=== PATIENT | male | born 1965 | race Caucasian/White ===

== ENCOUNTER 2018-08-06 23:59 | Inpatient (IN) | payer OTHER ==
[2018-08-07 01:10] LABS: ADD MAN DIFF? NO
[2018-08-07 01:13] LABS: WHITE BLOOD COUNT 11.9 10^3/ul (4.8-10.8)
[2018-08-07 01:13] LABS: BASOPHIL # 0.1 10^3/ul (0.0-0.1); BASOPHILS % 0.8 % (0.0-2.0); EOSINOPHILS # 0.3 10^3/ul (0.0-0.5); EOSINOPHILS % 2.7 % (0.0-7.0); HEMATOCRIT 54.9 % (42.0-52.0); HEMOGLOBIN 17.4 g/dl (14.0-18.0); LYMPHOCYTES # 1.3 10^3/ul (0.8-2.9); LYMPHOCYTES % 10.9 % (15.0-51.0); MEAN CORPUSCULAR HGB CONC 31.7 g/dl (32.0-37.0); MEAN CORPUSCULAR VOLUME 91.5 fl (82.0-101.0); MONOCYTE # 0.9 10^3/ul (0.3-0.9); MONOCYTES % 7.6 % (0.0-11.0); NEUTROPHIL # 9.2 10^3/ul (1.6-7.5); NEUTROPHILS % 77.5 % (39.0-77.0); PLATELET COUNT 235 10^3/UL (140-415); RED CELL DISTRIBUTION WIDTH 15.8 % (11.5-14.5)
[2018-08-07] MEDS: CLINDAMYCIN 900 MG/D5W (PMX) 50 ML IVPB (01:19)
[2018-08-07 01:33] LABS: INR 0.98; PARTIAL THROMBOPLASTIN TIME 29.2 Sec (23.0-35.0); PROTIME 13.1 Sec (11.9-14.9)
[2018-08-07 01:44] LABS: ANION GAP 4 (5-13); BLOOD UREA NITROGEN 17 mg/dl (7-20); CALCIUM 7.9 mg/dl (8.4-10.2); CARBON DIOXIDE 28 mmol/L (21-31); CHLORIDE 109 mmol/L (97-110); CREATININE 1.35 mg/dl (0.61-1.24); Estimated GFR 55 mL/min (>60); GLUCOSE 95 mg/dl (70-220); POTASSIUM 4.5 mmol/L (3.5-5.1); SODIUM 141 mmol/L (135-144)
[2018-08-07 01:56] LABS: TROPONIN-I 0.027 ng/ml (0.000-0.120)
[2018-08-07] MEDS ORDERED: NACL 0.9% 3 ML SYG IV (02:00)
[2018-08-07] MEDS ORDERED: ONDANSETRON 4 MG INJ IV (02:00)
[2018-08-07] MEDS ORDERED: VANCOMYCIN IV PER PHARMACY XX (02:00)
[2018-08-07] MEDS ORDERED: BISACODYL (EC) 5 MG TAB PO (02:00)
[2018-08-07] MEDS ORDERED: ACETAMINOPHEN 325 MG TAB PO (02:00)
[2018-08-07] MEDS ORDERED: DOCUSATE SODIUM 100 MG CAP PO (02:00)
[2018-08-07] MEDS: FUROSEMIDE 40 MG INJ IV ×2 (02:19→10:47)
[2018-08-07] MEDS: PIPER-TAZO 3.375 GM IV (PMX) 100 ML IVPB (02:20)
[2018-08-07] MEDS: hydrALAzine 20 MG INJ IV (02:20)
[2018-08-07 02:59] LABS: ALANINE AMINOTRANSFERASE 39 IU/L (13-69); ALBUMIN 2.6 g/dl (3.3-4.9); ALKALINE PHOSPHATASE 205 IU/L (42-121); ASPARTATE AMINO TRANSFERASE 64 IU/L (15-46); BILIRUBIN,INDIRECT 1.1 mg/dl (0-1.1); BILIRUBIN,TOTAL 1.1 mg/dl (0.2-1.3); CHOL/HDL RATIO 5.1 RATIO; CHOLESTEROL 179 mg/dl (100-200); HDL CHOLESTEROL 35 mg/dl (28-71); LDL CHOLESTEROL,CALCULATED 124 mg/dl; TOTAL PROTEIN 5.4 g/dl (6.1-8.1); TRIGLYCERIDES 99 mg/dl (0-149)
[2018-08-07 03:08] LABS: B-TYPE NATRIURETIC PEPTIDE 7960 PG/ML (0-125)
[2018-08-07] MEDS: VANCOMYCIN 1 GM (PMX) 250 ML IVPB (03:18)
[2018-08-07 03:27] LABS: ADD UMIC NO; UR ASCORBIC ACID 40 mg/dL (NEGATIVE); UR BILIRUBIN (Dip) NEGATIVE (NEGATIVE); UR BLOOD (Dip) NEGATIVE (NEGATIVE); UR CLARITY CLEAR (CLEAR); UR COLOR YELLOW (YELLOW); UR GLUCOSE (Dip) NEGATIVE (NEGATIVE); UR KETONES (Dip) NEGATIVE (NEGATIVE); UR LEUKOCYTE ESTERASE (Dip) NEGATIVE Leu/ul (NEGATIVE); UR NITRITE (Dip) NEGATIVE (NEGATIVE); UR SPECIFIC GRAVITY (Dip) 1.014 (1.003-1.030); UR TOTAL PROTEIN (Dip) NEGATIVE (NEGATIVE); UR UROBILINOGEN (Dip) 2+ mg/dL (NEGATIVE)
[2018-08-07] MEDS: morphine 2 MG INJ IV (04:44)
[2018-08-07 05:15] LABS: ETHANOL < 10.0 mg/dl
[2018-08-07] MEDS ORDERED: HEPARIN 5,000 UNIT/0.5 ML VIAL ×2 (05:20→22:00)
[2018-08-07 05:23] LABS: BARBITURATES Negative (NEGATIVE); BENZODIAZEPINES Negative (NEGATIVE); CANNABINOIDS Negative (NEGATIVE); COCAINE Negative (NEGATIVE); OPIATES Negative (NEGATIVE)
[2018-08-07 05:32] LABS: HEMOGLOBIN A1C 5.6 % (0-5.9)
[2018-08-07] MEDS: HEPARIN 5,000 UNIT/1 ML VIAL SC ×3 (05:47→22:02)
[2018-08-07 06:05] LABS: AMPHETAMINE/METHAMPHETAMINE POSITIVE (NEGATIVE)
[2018-08-07] MEDS: VANCOMYCIN 1 GM 250 ML IVPB ×2 (06:23→22:01)
[2018-08-07 06:29] LABS: LACTIC ACID 1.5 mmol/L (0.5-2.0)
[2018-08-07 07:59] LABS: LACTIC ACID 1.6 mmol/L (0.5-2.0)
[2018-08-07] MEDS ORDERED: VANCOMYCIN 1 GM 250 ML IVPB (18:30)
[2018-08-08] MEDS ORDERED: HEPARIN 5,000 UNIT/0.5 ML VIAL ×3 (05:31→22:16)
[2018-08-08] MEDS: HEPARIN 5,000 UNIT/1 ML VIAL SC ×3 (06:02→22:43)
[2018-08-08 06:03] LABS: ADD MAN DIFF? NO; HAAIG REFLEX REFLEX FILED
[2018-08-08 06:14] LABS: WHITE BLOOD COUNT 8.8 10^3/ul (4.8-10.8)
[2018-08-08 06:14] LABS: BASOPHIL # 0.1 10^3/ul (0.0-0.1); BASOPHILS % 1.3 % (0.0-2.0); EOSINOPHILS # 0.3 10^3/ul (0.0-0.5); EOSINOPHILS % 3.1 % (0.0-7.0); LYMPHOCYTES # 1.5 10^3/ul (0.8-2.9); LYMPHOCYTES % 17.2 % (15.0-51.0); MEAN CORPUSCULAR HEMOGLOBIN 29.2 pg (29.0-33.0); MEAN CORPUSCULAR VOLUME 91.2 fl (82.0-101.0); MONOCYTE # 0.9 10^3/ul (0.3-0.9); MONOCYTES % 9.8 % (0.0-11.0); PLATELET COUNT 259 10^3/UL (140-415); RED BLOOD COUNT 5.48 10^6/ul (4.70-6.10)
[2018-08-08 06:45] LABS: ALANINE AMINOTRANSFERASE 31 IU/L (13-69); ALBUMIN 2.3 g/dl (3.3-4.9); ALBUMIN/GLOBULIN RATIO 0.82; ALKALINE PHOSPHATASE 174 IU/L (42-121); ANION GAP 5 (5-13); ASPARTATE AMINO TRANSFERASE 45 IU/L (15-46); BILIRUBIN,INDIRECT 1.4 mg/dl (0-1.1); BILIRUBIN,TOTAL 1.4 mg/dl (0.2-1.3); BLOOD UREA NITROGEN 18 mg/dl (7-20); CALCIUM 7.8 mg/dl (8.4-10.2); CARBON DIOXIDE 25 mmol/L (21-31); CHLORIDE 108 mmol/L (97-110); CREATININE 1.36 mg/dl (0.61-1.24); Estimated GFR 55 mL/min (>60); GLUCOSE 92 mg/dl (70-220); POTASSIUM 4.3 mmol/L (3.5-5.1); SODIUM 138 mmol/L (135-144); TOTAL PROTEIN 5.1 g/dl (6.1-8.1)
[2018-08-08 07:45] LABS: HEPATITIS B SURFACE ANTIGEN NEGATIVE (NEGATIVE)
[2018-08-08 08:03] LABS: HEPATITIS B CORE ANTIBODY REACTIVE (NEGATIVE); HEPATITIS C VIRAL ANTIBODY NEGATIVE (NEGATIVE)
[2018-08-08] MEDS: VANCOMYCIN 1 GM 250 ML IVPB ×2 (09:18→21:26)
[2018-08-08] MEDS: FUROSEMIDE 40 MG INJ IV ×3 (09:19→20:27)
[2018-08-08] MEDS: LEVOFLOXACIN 500MG/D5W (PMX) 100 ML IVPB (14:19)
[2018-08-08] MEDS: LEVALBUTEROL (NEB) 0.63 MG/3 ML AMP HHN (16:32)
[2018-08-08 17:28] LABS: CREATINE KINASE 99 IU/L (23-200)
[2018-08-08 17:41] LABS: CK INDEX 3.1; CK-MB 3.11 ng/ml (0.0-2.4)
[2018-08-08 17:48] LABS: TROPONIN-I 0.201 ng/ml (0.000-0.120)
[2018-08-08] MEDS: ASPIRIN (EC) 81 MG TAB PO (20:27)
[2018-08-08 20:34] LABS: VANCOMYCIN,TROUGH 14.5 ug/ml (10.0-20.0)
[2018-08-08] MEDS: morphine 2 MG INJ IV (23:35)
[2018-08-09] MEDS ORDERED: HEPARIN 5,000 UNIT/0.5 ML VIAL ×3 (05:37→21:48)
[2018-08-09] MEDS: HEPARIN 5,000 UNIT/1 ML VIAL SC ×3 (05:49→21:55)
[2018-08-09 07:01] LABS: TROPONIN-I 0.197 ng/ml (0.000-0.120)
[2018-08-09] MEDS: FUROSEMIDE 40 MG INJ IV (08:19)
[2018-08-09] MEDS: ASPIRIN (EC) 81 MG TAB PO (08:19)
[2018-08-09] MEDS: VANCOMYCIN 1 GM 250 ML IVPB ×2 (08:20→20:43)
[2018-08-09 13:59] LABS: ALANINE AMINOTRANSFERASE 42 IU/L (13-69); ALBUMIN 2.4 g/dl (3.3-4.9); ALBUMIN/GLOBULIN RATIO 0.82; ALKALINE PHOSPHATASE 205 IU/L (42-121); ANION GAP 6 (5-13); ASPARTATE AMINO TRANSFERASE 75 IU/L (15-46); BLOOD UREA NITROGEN 21 mg/dl (7-20); CALCIUM 7.6 mg/dl (8.4-10.2); CARBON DIOXIDE 29 mmol/L (21-31); CHLORIDE 102 mmol/L (97-110); CREATINE KINASE 86 IU/L (23-200); Estimated GFR 58 mL/min (>60); GLUCOSE 84 mg/dl (70-220); POTASSIUM 4.3 mmol/L (3.5-5.1); SODIUM 137 mmol/L (135-144); TOTAL PROTEIN 5.3 g/dl (6.1-8.1)
[2018-08-09 14:08] LABS: B-TYPE NATRIURETIC PEPTIDE 5660 PG/ML (0-125)
[2018-08-09] MEDS: morphine 2 MG INJ IV ×2 (14:21→20:58)
[2018-08-09] MEDS ORDERED: SILVER SULFADIAZINE 1% 400 GM CR TOP (15:00)
[2018-08-09] MEDS: SILVER SULFADIAZINE 1% 25 GM CR TOP ×2 (15:53→20:46)
[2018-08-10] MEDS ORDERED: HEPARIN 5,000 UNIT/0.5 ML VIAL (05:13)
[2018-08-10] MEDS: HEPARIN 5,000 UNIT/1 ML VIAL SC (06:02)
[2018-08-10] MEDS: VANCOMYCIN 1 GM 250 ML IVPB (08:29)
[2018-08-10] MEDS: ASPIRIN (EC) 81 MG TAB PO (08:29)
[2018-08-10] MEDS: FUROSEMIDE 40 MG INJ IV (08:29)
[2018-08-10] MEDS: SILVER SULFADIAZINE 1% 25 GM CR TOP (08:30)
[2018-08-10] MEDS: morphine 2 MG INJ IV (08:33)
[2018-08-10 12:34] LABS: INR 0.97
[2018-08-10 12:35] LABS: PARTIAL THROMBOPLASTIN TIME 31.2 Sec (23.0-35.0)
[2018-08-10] MEDS ORDERED: METHYLPREDNISOLONE 40 MG INJ IV (14:00)
[2018-08-10] MEDS ORDERED: FUROSEMIDE 40 MG INJ IV (18:00)
== END 2018-08-10 15:00 | disposition left against medical advice (07) | DRG 602 ==
LOC: E/R 23:59 → 6WM 08-08 17:32 → PP2 08-07 01:35
PROVIDERS: Family Medicine
DX: L03.115 Cellulitis of right lower limb (principal); I50.43 Acute on chronic combined systolic (congestive) and diastolic (congestive) heart failure; J96.91 Respiratory failure, unspecified with hypoxia; N17.9 Acute kidney failure, unspecified; I13.0 Hypertensive heart and chronic kidney disease with heart failure and stage 1 through stage 4 chronic kidney disease, or unspecified chronic kidney disease; J44.9 Chronic obstructive pulmonary disease, unspecified; E66.9 Obesity, unspecified; Z68.31 Body mass index [BMI] 31.0-31.9, adult; Z86.711 Personal history of pulmonary embolism; Z91.19 Patient's noncompliance with other medical treatment and regimen; I87.8 Other specified disorders of veins; K74.60 Unspecified cirrhosis of liver; F15.90 Other stimulant use, unspecified, uncomplicated; I27.20 Pulmonary hypertension, unspecified; L03.116 Cellulitis of left lower limb; N18.9 Chronic kidney disease, unspecified
CPT/HCPCS: 36415; 71045; 71250; 76705; 78582; 80048; 80053; 80061; 80076; 80202; 80307; 81003; 82550; 82553; 83036; 83605; 83880; 84443; 84484; 85025; 85610; 85730; 86704; 86709; 86803; 87040; 87081; 87086; 87340; 93005; 93306; 93922; 93970; 94640; 94664; 96374; 99285-25; G0378